=== PATIENT | male | born 1970 | race African-American/Black ===

== ENCOUNTER 2017-04-26 11:36 | Emergency (ER) | payer OTHER ==
[~2017-04-26] VITALS: Ht 172.7 cm; Wt 56.2 kg
[~2017-04-26 11:36] MED LIST: CARBAMAZEPINE200 MG PO; CHOLESTROL MED; DEPAKOTE250 MG PO; FISH OIL 1,0001 EACH PO; FOLIC ACID; FOLIC ACID1 MG PO; KEPPRA750 MG PO; KLONIPIN PO; KLONOPIN2 MG PO; Lamictal PO; MOTRIN600 MG PO; MOTRIN800 MG PO; SIMVASTATIN PO; TEGRETOL PO; ZOCOR80 MG PO
[2017-04-26 12:15] VITALS: BP 104/83
[2017-04-26 12:26] LABS: HEMATOCRIT 42.3 % (38.0-50.0); MCH 32.2 PG (29.0-34.0); MCHC 33.3 G/DL (30.0-36.0); MCV 96.6 FL (86-99); RBC DIS.WIDTH-CV 12.8 % (11.8-14.6); RBC DIS.WIDTH-SD 46.1 % (39-53); RED BLOOD COUNT 4.38 M/uL (4.00-5.50); WHITE BLOOD COUNT 3.1 K/uL (4.1-10.2)
[2017-04-26 12:39] LABS: CHLORIDE 107 mEq/L (99-109); POTASSIUM 4.6 mEq/L (3.7-5.4); SODIUM 142 mEq/L (136-147)
[2017-04-26 12:41] LABS: GLUCOSE 86 mg/dL (70-99)
[2017-04-26 12:43] LABS: ANION GAP 8 MEQ/L (2-14)
[2017-04-26 12:44] LABS: SERUM ETHYL ALCOHOL < 10 mg/dL
[2017-04-26 12:45] LABS: GFR ESTIMATE (CALCULATED) > 59 mL/min/
[2017-04-26 12:46] LABS: UREA NITROGEN (BUN) 13 mg/dL (9-23)
[2017-04-26 13:14] LABS: MEAN PLAT.VOLUME 10.1 uM^3 (9.0-12.4); PLAT.SUFFICIENCY ADEQUATE; PLATELET COUNT 229 K/uL (156-360)
== END 2017-04-26 13:12 | disposition left against medical advice (07) ==
LOC: EME 11:36
PROVIDERS: Emergency Medicine
DX: R56.9 Unspecified convulsions (principal); F17.200 Nicotine dependence, unspecified, uncomplicated
CPT/HCPCS: 80048; 85027; 99281; 99284; G0480